=== PATIENT | female | born 1955 | race Caucasian/White ===

== ENCOUNTER 2019-05-14 09:40 | Emergency (ER) | payer BC ==
[2019-05-14 10:18] LABS: Absolute Lymphocytes (CBC) 1.9 K/uL (0.7-4.9); Basophils % 1.4 % (0-1.3); Hematocrit 39.8 % (36.0-45.0); Lymphocytes % 27.9 % (15.3-44.8); MPV 7.4 fL (7.6-11.3); RBC Red Blood Cell Count 4.79 M/uL (3.86-4.86)
[2019-05-14 10:42] LABS: Albumin 3.7 g/dL (3.4-5.0); Bilirubin Direct 0.2 mg/dL (0-0.2); Bilirubin Total 0.7 mg/dL (0.2-1.0); Potassium 3.9 mmol/L (3.5-5.1)
--- NOTE | 2019-05-14 11:25 | RAD REPORT ---
EXAM DESCRIPTION: CT - Abdomen Pelvis W Contrast - 05/14/2019 11:09 am CLINICAL HISTORY: Abdominal pain COMPARISON: none. TECHNIQUE: Computed axial tomography of the abdomen pelvis was obtained. 100 cc Isovue-300 was admin istered intravenously. Oral contrast was not requested which limits evaluation of bowel. All CT scans are performed using dose optimization technique as appropriate and may include automated exposure control or mA/KV adjustment according to patient size. FINDINGS: The liver, spleen, pancreas, adrenal and kidneys appear unremarkable. There is no evidence of diverticulitis. Normal appendix hysterectomy. Cholecystectomy Sclerosis involves the sacroiliac joints IMPRESSION: No acute abnormality is displayed.
[2019-05-14 11:48] LABS: Urine Blood NEGATIVE (NEG); Urine Glucose NEGATIVE (NEG); Urine Protein NEGATIVE (NEG); Urine pH 5.5 (5.0-7.0)
--- NOTE | 2019-05-14 11:52 | ER ---
Nurse's Notes [facility] Name: Erika De La Cruz Age: 63 yrs Sex: Female : 1955 Arrival Date: 05/14/2019 Time: 09:43 Bed 6 Private MD: Diagnosis: Unspecified abdominal pain Presentation: 05/14 09:50 Presenting complaint: Patient states: R sided abd pain described as dull, continuous ss and pinching that began 1.5 weeks ago. Patient reports she was told to come be evaluated for possible kidney stone. Patient was seen by PCP Thursday, and was told that her urine was negative for any signs of infection. Transition of care: patient was not received from another setting of care. Onset of symptoms was May 03, 2019. Risk Assessment: Do you want to hurt yourself or someone else? Patient reports no desire to harm self or others. Initial Sepsis Screen: Does the patient meet any 2 criteria? No. Patient's initial sepsis screen is negative. Does the patient have a suspected source of infection? No. Patient's initial sepsis screen is negative. Care prior to arrival: None. 09:50 Method Of Arrival: Ambulatory ss 09:50 Acuity: KYUNG 3 ss Triage Assessment: 10:50 General: Appears in no apparent distress. comfortable, Behavior is calm, cooperative, ch appropriate for age. 10:50 Pain: Complains of pain in abdomen Pain currently is 4 out of 10 on a pain scale. GI: ch Reports lower abdominal pain, upper abdominal pain, gaseousness. Historical: - Allergies: 10:44 Sulfa (Sulfonamide Antibiotics); jl7 - Home Meds: 10:44 pantoprazole 40 mg oral TbEC 1 tab once daily [Active]; lisinopril 20 mg Oral tab 1 tab jl7 once daily [Active]; levothyroxine 75 mcg tab 1 tab once daily [Active]; estradiol 0.5 mg Oral tab 1 tab once daily [Active]; - PMHx: 10:44 GERD; Hypertension; Hypothyroidism; jl7 - PSHx: 10:44 Hysterectomy; Cholecystectomy; right foot; left shoulder; neck \T\ back; jl7 - Immunization history:: Adult Immunizations up to date. - Social history:: Smoking status: Patient/guardian denies using tobacco. - Ebola Screening: : Patient denies exposure to infectious person Patient denies travel to an Ebola-affected area in the 21 days before illness onset. Screenin:03 Abuse screen: Denies threats or abuse. Denies injuries from another. Nutritional ch screening: No deficits noted. Tuberculosis screening: No symptoms or risk factors identified. Fall Risk None identified. Assessment: 12:03 Reassessment: Patient appears in no apparent distress at this time. Patient and/or ch family updated on plan of care and expected duration. Pain level reassessed. Patient is alert, oriented x 3, equal unlabored respirations, skin warm/dry/pink. Patient states feeling better. Patient states symptoms have improved. Vital Signs: 09:55 BP 147 / 91; Pulse 72; Resp 18 S; Pulse Ox 100% on R/A; jl7 10:34 BP 124 / 83; Pulse 63; Resp 16; Pulse Ox 100% on R/A; jl7 12:03 BP 110 / 67; Pulse 54; Resp 18; Temp 98.5; Pulse Ox 99% on R/A; Pain 0/10; ch ED Course: 09:43 Patient arrived in ED. mr 09:47 Per Mendes PA is PHCP. jr8 09:47 Duncan Brandon MD is Attending Physician. jr8 09:49 Crow Galvin RN is Primary Nurse. jl7 09:52 Triage completed. ss 10:12 Inserted saline lock: 20 gauge in right antecubital area, using aseptic technique. Blood collected. 10:34 Arm band placed on right wrist. jl7 10:40 Patient has correct armband on for positive identification. Bed in low position. Call light in reach. Side rails up X 1. Adult w/ patient. 10:40 Pulse ox on. NIBP on. 11:08 CT completed. Patient tolerated procedure well. Patient moved back from CT. mw3 11:11 CT Abd/Pelvis - IV Contrast Only In Process Unspecified. EDMS 12:04 No apparent distress. ch 12:04 No provider procedures requiring assistance completed. IV discontinued, intact, ch bleeding controlled, No redness/swelling at site. Pressure dressing applied. Administered Medications: No medications were administered Outcome: 11:51 Discharge ordered by . jr8 12:04 Discharged to home ambulatory, with family. ch 12:04 Condition: improved 12:04 Discharge instructions given to patient, family, Instructed on discharge instructions, follow up and referral plans. medication usage, Demonstrated understanding of instructions, follow-up care, medications. 12:05 Patient left the ED. Signatures: Dispatcher [employer] EDElizabeth Purdy, RN RN Jillian Yeh Shelby, RN RN Per Mendes PA PA jr8 Leal, Jahala, RN RN jl7 Ami Uribe mw3
--- NOTE | 2019-05-14 11:52 | EDPHYS ---
Physician Documentation [facility] Name: Erika De La Cruz Age: 63 yrs Sex: Female : 1955 Arrival Date: 05/14/2019 Time: 09:43 Bed 6 Private MD: DOMINICK Physician Duncan Brandon HPI: 05/14 11:52 This 63 yrs old Female presents to ER via Ambulatory with complaints of jr8 Abdominal Pain. 11:52 The patient presents with abdominal pain in the right upper quadrant, right lower jr8 quadrant. Onset: The symptoms/episode began/occurred 1 week(s) ago. The patient has not experienced similar symptoms in the past. Pt reports right sided abd pain for one week, seen by PCP, urine was negative for blood or infection but pain is worse today.. Historical: - Allergies: 10:44 Sulfa (Sulfonamide Antibiotics); jl7 - Home Meds: 10:44 pantoprazole 40 mg oral TbEC 1 tab once daily [Active]; lisinopril 20 mg Oral tab 1 tab jl7 once daily [Active]; levothyroxine 75 mcg tab 1 tab once daily [Active]; estradiol 0.5 mg Oral tab 1 tab once daily [Active]; - PMHx: 10:44 GERD; Hypertension; Hypothyroidism; jl7 - PSHx: 10:44 Hysterectomy; Cholecystectomy; right foot; left shoulder; neck \T\ back; jl7 - Immunization history:: Adult Immunizations up to date. - Social history:: Smoking status: Patient/guardian denies using tobacco. - Ebola Screening: : Patient denies exposure to infectious person Patient denies travel to an Ebola-affected area in the 21 days before illness onset. ROS: 11:52 Constitutional: Negative for fever, chills, and weight loss, Eyes: Negative for injury, jr8 pain, redness, and discharge, ENT: Negative for injury, pain, and discharge, Neck: Negative for injury, pain, and swelling, Cardiovascular: Negative for chest pain, palpitations, and edema, Respiratory: Negative for shortness of breath, cough, wheezing, and pleuritic chest pain, Abdomen/GI: Negative for abdominal pain, nausea, vomiting, diarrhea, and constipation, Back: Negative for injury and pain, MS/Extremity: Negative for injury and deformity, Neuro: Negative for headache, weakness, numbness, tingling, and seizure. Exam: 11:52 Constitutional: This is a well developed, well nourished patient who is awake, alert, jr8 and in no acute distress. Head/Face: Normocephalic, atraumatic. Eyes: Pupils equal round and reactive to light, extra-ocular motions intact. Lids and lashes normal. Conjunctiva and sclera are non-icteric and not injected. Cornea within normal limits. Periorbital areas with no swelling, redness, or edema. ENT: Nares patent. No nasal discharge, no septal abnormalities noted. Tympanic membranes are normal and external auditory canals are clear. Oropharynx with no redness, swelling, or masses, exudates, or evidence of obstruction, uvula midline. Mucous membranes moist. Neck: Trachea midline, no thyromegaly or masses palpated, and no cervical lymphadenopathy. Supple, full range of motion without nuchal rigidity, or vertebral point tenderness. No Meningismus. Chest/axilla: Normal chest wall appearance and motion. Nontender with no deformity. No lesions are appreciated. Cardiovascular: Regular rate and rhythm with a normal S1 and S2. No gallops, murmurs, or rubs. Normal PMI, no JVD. No pulse deficits. Respiratory: Lungs have equal breath sounds bilaterally, clear to auscultation and percussion. No rales, rhonchi or wheezes noted. No increased work of breathing, no retractions or nasal flaring. Back: No spinal tenderness. No costovertebral tenderness. Full range of motion. Skin: Warm, dry with normal turgor. Normal color with no rashes, no lesions, and no evidence of cellulitis. 11:52 Abdomen/GI: Inspection: abdomen appears normal, Bowel sounds: normal, in all quadrants, Palpation: soft, in all quadrants, mild abdominal tenderness, in the right upper quadrant and right lower quadrant. Vital Signs: 09:55 BP 147 / 91; Pulse 72; Resp 18 S; Pulse Ox 100% on R/A; jl7 10:34 BP 124 / 83; Pulse 63; Resp 16; Pulse Ox 100% on R/A; jl7 12:03 BP 110 / 67; Pulse 54; Resp 18; Temp 98.5; Pulse Ox 99% on R/A; Pain 0/10; ch MDM: 09:47 Patient medically screened. jr8 11:49 Data reviewed: vital signs, nurses notes, lab test result(s), radiologic studies, and jr8 as a result, I will discharge patient. Data interpreted: Pulse oximetry: on room air is 100 %. Interpretation: normal. Counseling: I had a detailed discussion with the patient and/or guardian regarding: the historical points, exam findings, and any diagnostic results supporting the discharge/admit diagnosis, the presence of at least one elevated blood pressure reading (>120/80) during this emergency department visit, lab results. Response to treatment: the patient's symptoms have mildly improved after treatment. ED course: Pt resting in stretcher comfortably, discussed results from CT, labs. . 05/14 09:52 Order name: Basic Metabolic Panel; Complete Time: 10:51 05/14 09:52 Order name: CBC with Diff; Complete Time: 10:51 05/14 09:52 Order name: Creatinine for Radiology; Complete Time: 10:05/14 09:52 Order name: Hepatic Function; Complete Time: 10:05/14 09:52 Order name: Lipase; Complete Time: 10:05/14 10:50 Order name: Urine Dipstick--Ancillary (enter results); Complete Time: 11:49 05/14 09:52 Order name: IV Saline Lock; Complete Time: 10:30 05/14 09:52 Order name: Labs collected and sent; Complete Time: 10:05/14 10:45 Order name: CT Abd/Pelvis - IV Contrast Only; Complete Time: 11:49 ss Administered Medications: No medications were administered Disposition: 05/14/19 11:51 Discharged to Home. Impression: Unspecified abdominal pain. - Condition is Stable. - Discharge Instructions: Abdominal Pain, Adult. - Medication Reconciliation Form, Thank You Letter form. - Follow up: Private Physician; When: 2 - 3 days; Reason: Recheck today's complaints, Re-evaluation by your physician. - Problem is new. - Symptoms have improved. Addendum: 05/16/2019 07:57 Co-signature as Attending Physician, Duncan Brandon MD I agree with the assessment and c palma plan of care. Signatures: Dispatcher [facility] Elizabeth Farias RN RN ch Anderson, Corey, MD MD [facility] Yamilet, RN RN Per Washington PA PA jr8 Crow Galvin RN RN jl7 Corrections: (The following items were deleted from the chart) 05/14 12:05 11:51 05/14/2019 11:51 Discharged to Home. Impression: Unspecified abdominal pain. ch Condition is Stable. Forms are Medication Reconciliation Form, Thank You Letter, Antibiotic Education, Prescription Opioid Use. Follow up: Private Physician; When: 2 - 3 days; Reason: Recheck today's complaints, Re-evaluation by your physician. Problem is new. Symptoms have improved. jr8
[2019-05-14 12:15] VITALS: BP 110/67; TEMP 98.5; O2SAT 99
== END 2019-05-14 12:05 | disposition home or self-care (01) ==
LOC: ER 09:40
DX: R10.9 Unspecified abdominal pain (principal); I10 Essential (primary) hypertension; E03.9 Hypothyroidism, unspecified; Z88.2 Allergy status to sulfonamides
CPT/HCPCS: 85025; 80048; 36415; 80076; 81003; 83690; 74177; 99284; Q9967

== ENCOUNTER 2020-10-04 15:15 | Emergency (ER) | payer OTHER ==
[2020-10-04 18:26] LABS: Absolute Lymphocytes (CBC) 1.5 K/uL (0.7-4.9); Hematocrit 35.7 % (36.0-45.0); Lymphocytes % 13.5 % (15.3-44.8); MPV 7.8 fL (7.6-11.3)
[2020-10-04 18:48] LABS: Albumin 3.4 g/dL (3.4-5.0); Bilirubin Direct 0.3 mg/dL (0-0.2); Bilirubin Total 1.3 mg/dL (0.2-1.0); Potassium 3.1 mmol/L (3.5-5.1); Protein, Total 7.1 g/dL (6.4-8.2)
--- NOTE | 2020-10-04 19:46 | RAD REPORT ---
EXAM DESCRIPTION: CTAbdomen Pelvis W Contrast - 10/04/2020 7:32 pm CLINICAL HISTORY: Abdominal pain. ABD PAIN COMPARISON: Abdomen Pelvis W Contrast dated 05/14/2019 TECHNIQUE: Biphasic CT imaging of the abdomen and pelvis was performed with 100 ml non-ionic IV cont rast. All CT scans are performed using dose optimization technique as appropriate and may include automated exposure control or mA/KV adjustment according to patient size. FINDINGS: The lung bases are clear.Cholecystectomy. The liver, spleen, pancreas, adrenal glands and kidneys are within normal limits. No bowel obstruction, free air, free fluid or abscess. Moderate inflammation is seen surrounding the sigmoid colon suggesting diverticulitis. The appendix is normal. No evidence of significant lymphade nopathy. Moderate lumbar degenerative changes. IMPRESSION: Mild to moderate acute diverticulitis suspected involving the sigmoid colon. No abscess is evident.
[2020-10-04] MEDS ORDERED: METRONIDAZOLE 500mg IVPB 500 MG/100 ML BAG IV ONE (20:12)
[2020-10-04] MEDS ORDERED: CIPROFLOXACIN 400mg IV 400 MG/200 ML BAG IV ONE (20:12)
--- NOTE | 2020-10-04 20:24 | EDPHYS ---
Physician Documentation [facility] Name: Erika De La Cruz Age: 65 yrs Sex: Female : 1955 Arrival Date: 10/04/2020 Time: 15:17 Bed 17 Private MD: ED Physician Duncan Brandon HPI: 10/04 18:41 This 65 yrs old Female presents to ER via Ambulatory with complaints of jr8 Abdominal Pain. 18:41 The patient presents with abdominal pain in the lower abdomen. Onset: The jr8 symptoms/episode began/occurred acutely, yesterday. The symptoms do not radiate. Associated signs and symptoms: none. The symptoms are described as crampy. Modifying factors: The symptoms are alleviated by nothing, the symptoms are aggravated by movement. Severity of pain: At its worst the pain was moderate in the emergency department the pain is unchanged. The patient has not experienced similar symptoms in the past. The patient has not recently seen a physician. Historical: - Allergies: 15:31 Sulfa (Sulfonamide Antibiotics); ll1 - PMHx: 15:31 GERD; Hypertension; Hypothyroidism; Asthma; ll1 - PSHx: 15:31 Hysterectomy; Cholecystectomy; right foot; left shoulder; neck \T\ back; knee sx; ll1 - Immunization history:: Flu vaccine is up to date. - Social history:: Smoking status: Patient denies any tobacco usage or history of. ROS: 18:41 Eyes: Negative for injury, pain, redness, and discharge, ENT: Negative for injury, jr8 pain, and discharge, Neck: Negative for injury, pain, and swelling, Cardiovascular: Negative for chest pain, palpitations, and edema, Respiratory: Negative for shortness of breath, cough, wheezing, and pleuritic chest pain, Back: Negative for injury and pain, MS/Extremity: Negative for injury and deformity, Skin: Negative for injury, rash, and discoloration, Neuro: Negative for headache, weakness, numbness, tingling, and seizure. 18:41 Abdomen/GI: Positive for abdominal pain, abdominal cramps, Negative for nausea, vomiting, and diarrhea, abdominal distension, hematemesis, black/tarry stool, rectal bleeding, bowel incontinence, flatulence. Exam: 18:41 Eyes: Pupils equal round and reactive to light, extra-ocular motions intact. Lids and jr8 lashes normal. Conjunctiva and sclera are non-icteric and not injected. Cornea within normal limits. Periorbital areas with no swelling, redness, or edema. ENT: Nares patent. No nasal discharge, no septal abnormalities noted. Tympanic membranes are normal and external auditory canals are clear. Oropharynx with no redness, swelling, or masses, exudates, or evidence of obstruction, uvula midline. Mucous membranes moist. Neck: Trachea midline, no thyromegaly or masses palpated, and no cervical lymphadenopathy. Supple, full range of motion without nuchal rigidity, or vertebral point tenderness. No Meningismus. Cardiovascular: Regular rate and rhythm with a normal S1 and S2. No gallops, murmurs, or rubs. Normal PMI, no JVD. No pulse deficits. Respiratory: Lungs have equal breath sounds bilaterally, clear to auscultation and percussion. No rales, rhonchi or wheezes noted. No increased work of breathing, no retractions or nasal flaring. Back: No spinal tenderness. No costovertebral tenderness. Full range of motion. Skin: Warm, dry with normal turgor. Normal color with no rashes, no lesions, and no evidence of cellulitis. MS/ Extremity: Pulses equal, no cyanosis. Neurovascular intact. Full, normal range of motion. Neuro: Awake and alert, GCS 15, oriented to person, place, time, and situation. Cranial nerves II-XII grossly intact. Motor strength 5/5 in all extremities. Sensory grossly intact. Cerebellar exam normal. Normal gait. 18:41 Abdomen/GI: Inspection: abdomen appears normal, Bowel sounds: active, all quadrants, Palpation: soft, in all quadrants, moderate abdominal tenderness, in the right lower quadrant, mass, is not appreciated, rebound tenderness, is not appreciated, voluntary guarding, is not appreciated, involuntary guarding, is not appreciated, no appreciated organomegaly, Indicators: McBurney's point is not tender, Fitzpatrick's sign is negative, Rovsing's sign is negative, Liver: tenderness, is not appreciated. Vital Signs: 15:28 BP 136 / 73; Pulse 105; Resp 16; Temp 97.2; Pulse Ox 97% on R/A; Weight 90.72 kg; ll1 Height 5 ft. 6 in. (167.64 cm); Pain 1/10; 18:40 BP 119 / 67; Pulse 74; Resp 16; Pulse Ox 97% on R/A; iw 19:00 BP 109 / 45; Pulse 72; Resp 16; Pulse Ox 98% ; sf 19:37 BP 128 / 60; sf 20:00 BP 138 / 75; Pulse 70; Resp 16; Pulse Ox 98% ; sf 21:00 BP 121 / 61; Pulse 73; Resp 16; Pulse Ox 97% ; sf 21:30 BP 123 / 67; Pulse 71; Resp 16; Pulse Ox 97% ; sf 15:28 Body Mass Index 32.28 (90.72 kg, 167.64 cm) ll1 MDM: 17:34 Patient medically screened. jr8 20:20 Data reviewed: vital signs, nurses notes, lab test result(s), radiologic studies, CT jr8 scan. Data interpreted: Pulse oximetry: on room air is 97 %. Interpretation: normal. Counseling: I had a detailed discussion with the patient and/or guardian regarding: the historical points, exam findings, and any diagnostic results supporting the discharge/admit diagnosis, lab results, radiology results, the need for outpatient follow up, a family practitioner, a child care education coordinator, to return to the emergency department if symptoms worsen or persist or if there are any questions or concerns that arise at home. ED course: Patient without pain currently. No leukocytosis. CT without perforation or complication. Hemodynamically stable. Will d/c patient home on Abx and close return precautions. S/S given to patient to watch for that would indicate need for reevaluation and admission. Patient good with this plan . 10/04 17:34 Order name: Basic Metabolic Panel; Complete Time: 18:51 jr8 10/04 17:34 Order name: CBC with Diff; Complete Time: 18:34 jr8 10/04 17:34 Order name: Hepatic Function; Complete Time: 18:51 jr8 10/04 17:34 Order name: Lipase; Complete Time: 18:51 jr8 10/04 17:48 Order name: CT Abd/Pelvis - IV Contrast Only; Complete Time: 19:47 jr8 10/04 17:34 Order name: IV Saline Lock; Complete Time: 18:06 8 10/04 17:34 Order name: Labs collected and sent; Complete Time: 18:06 jr8 Administered Medications: 20:00 Drug: Flagyl 500 mg Volume: 100 ml; Route: IVPB; Rate: 200 ml/hr; Infused Over: 30 sf mins; Site: left antecubital; 20:30 Follow up: IV Status: Completed infusion sf 21:55 Follow up: Response: No adverse reaction sf 20:40 Drug: Ciprofloxacin 400 mg Volume: 200 ml; Route: IVPB; Infused Over: 60 mins; Site: sf left antecubital; 21:40 Follow up: IV Status: Completed infusion sf 21:55 Follow up: Response: Medication administered at discharge. sf Disposition: 10/05 05:39 Co-signature as Attending Physician, Duncan Brandon MD I agree with the assessment and [facility] plan of care. Disposition: 10/04/20 20:23 Discharged to Home. Impression: Diverticulitis of large intestine without perforation or abscess without bleeding. - Condition is Stable. - Discharge Instructions: Diverticulitis. - Prescriptions for Bentyl 20 mg Oral Tablet - take 1 tablet by ORAL route every 6 hours As needed; 20 tablet. Cipro 500 mg Oral Tablet - take 1 tablet by ORAL route every 12 hours for 10 days; 20 tablet. Flagyl 500 mg Oral Tablet - take 1 tablet by ORAL route every 6 hours for 10 days; 40 tablet. Tylenol- Codeine #3 300-30 mg Oral Tablet - take 2 tablets by ORAL route every 6 hours As needed; 20 tablet. - Medication Reconciliation Form, Thank You Letter, Antibiotic Education, Prescription Opioid Use form. - Follow up: Private Physician; When: 5 - 6 days; Reason: Recheck today's complaints, Continuance of care, Re-evaluation by your physician. - Problem is new. - Symptoms have improved. Signatures: Dispatcher [employer] [facility] Duncan Brandon MD MD cha Roszak, Josh, PA PA jr8 Albina Castorena RN RN ll1 Linus Lundberg RN RN sf Corrections: (The following items were deleted from the chart) 10/04 22:01 20:23 10/04/2020 20:23 Discharged to Home. Impression: Diverticulitis of large sf intestine without perforation or abscess without bleeding. Condition is Stable. Forms are Medication Reconciliation Form, Thank You Letter, Antibiotic Education, Prescription Opioid Use. Follow up: Private Physician; When: 5 - 6 days; Reason: Recheck today's complaints, Continuance of care, Re-evaluation by your physician. Problem is new. Symptoms have improved. jr8
--- NOTE | 2020-10-04 20:24 | ER ---
Nurse's Notes [facility] Name: Erika De La Cruz Age: 65 yrs Sex: Female : 1955 Arrival Date: 10/04/2020 Time: 15:17 Bed 17 Private MD: Diagnosis: Diverticulitis of large intestine without perforation or abscess without bleeding Presentation: 10/04 15:28 Chief complaint: Patient states: Lower abd pain/cramping for 2 days intermittently. Had ll1 large BM yesterday, but her stomach still is crampy. No fever. Coronavirus screen: Client denies travel out of the [place] in the last 14 days. At this time, the client does not indicate any symptoms associated with coronavirus-19. Ebola Screen: Patient denies travel to an Ebola-affected area in the 21 days before illness onset. Initial Sepsis Screen: Does the patient meet any 2 criteria? HR > 90 bpm. No. Patient's initial sepsis screen is negative. Does the patient have a suspected source of infection? Yes: Acute abdominal pain. Risk Assessment: Do you want to hurt yourself or someone else? Patient reports no desire to harm self or others. Onset of symptoms was October 03, 2020. 15:28 Method Of Arrival: Ambulatory ll1 15:28 Acuity: KYUNG 3 ll1 Historical: - Allergies: 15:31 Sulfa (Sulfonamide Antibiotics); ll1 - PMHx: 15:31 GERD; Hypertension; Hypothyroidism; Asthma; ll1 - PSHx: 15:31 Hysterectomy; Cholecystectomy; right foot; left shoulder; neck \T\ back; knee sx; ll1 - Immunization history:: Flu vaccine is up to date. - Social history:: Smoking status: Patient denies any tobacco usage or history of. Screenin:23 Abuse screen: Denies threats or abuse. Denies injuries from another. Nutritional iw screening: No deficits noted. Tuberculosis screening: No symptoms or risk factors identified. Fall Risk None identified. Assessment: 18:22 General: Appears in no apparent distress. Behavior is calm, cooperative. Pain: iw Complains of pain in right lower quadrant and left lower quadrant Pain currently is 0 out of 10 on a pain scale. at worst was 10 out of 10 on a pain scale. Is intermittent. Neuro: Level of Consciousness is awake, alert, obeys commands, Oriented to person, place, time, situation, Moves all extremities. Full function. Cardiovascular: Patient's skin is warm and dry. Respiratory: Respiratory effort is even, unlabored, Respiratory pattern is regular. GI: Bowel sounds present X 4 quads. Abd is soft X 4 quads Reports lower abdominal pain. Derm: Skin is intact, is healthy with good turgor. Musculoskeletal: Range of motion: intact in all extremities. 18:40 Reassessment: Patient appears in no apparent distress at this time. Patient and/or iw family updated on plan of care and expected duration. Pain level reassessed. Patient is alert, oriented x 3, equal unlabored respirations, skin warm/dry/pink. Vital Signs: 15:28 BP 136 / 73; Pulse 105; Resp 16; Temp 97.2; Pulse Ox 97% on R/A; Weight 90.72 kg; ll1 Height 5 ft. 6 in. (167.64 cm); Pain 1/10; 18:40 BP 119 / 67; Pulse 74; Resp 16; Pulse Ox 97% on R/A; iw 19:00 BP 109 / 45; Pulse 72; Resp 16; Pulse Ox 98% ; sf 19:37 BP 128 / 60; sf 20:00 BP 138 / 75; Pulse 70; Resp 16; Pulse Ox 98% ; sf 21:00 BP 121 / 61; Pulse 73; Resp 16; Pulse Ox 97% ; sf 21:30 BP 123 / 67; Pulse 71; Resp 16; Pulse Ox 97% ; sf 15:28 Body Mass Index 32.28 (90.72 kg, 167.64 cm) ll1 ED Course: 15:17 Patient arrived in ED. as 15:30 Triage completed. ll1 15:31 Arm band placed on. ll1 17:33 Per Mendes PA is PHCP. jr8 17:33 Duncan Brandon MD is Attending Physician. jr8 17:51 Gilda Griffiths, RN is Primary Nurse. iw 18:06 Initial lab(s) drawn, by hi, sent to lab. Inserted saline lock: 20 gauge in left iw antecubital area, using aseptic technique. Blood collected. 18:22 Patient has correct armband on for positive identification. iw 19:09 Primary Nurse role handed off by Gilda Griffiths, RN 19:09 Linus Lundberg, RN is Primary Nurse. sf 19:32 CT Abd/Pelvis - IV Contrast Only In Process Unspecified. EDMS 21:59 IV discontinued, intact, bleeding controlled, No redness/swelling at site. Pressure sf dressing applied. 22:00 No provider procedures requiring assistance completed. sf Administered Medications: 20:00 Drug: Flagyl 500 mg Volume: 100 ml; Route: IVPB; Rate: 200 ml/hr; Infused Over: 30 sf mins; Site: left antecubital; 20:30 Follow up: IV Status: Completed infusion sf 21:55 Follow up: Response: No adverse reaction sf 20:40 Drug: Ciprofloxacin 400 mg Volume: 200 ml; Route: IVPB; Infused Over: 60 mins; Site: sf left antecubital; 21:40 Follow up: IV Status: Completed infusion sf 21:55 Follow up: Response: Medication administered at discharge. sf Outcome: 20:23 Discharge ordered by MD. lizarraga 22:00 Discharged to home ambulatory. sf 22:00 Condition: stable 22:00 Discharge instructions given to patient, Instructed on discharge instructions, follow up and referral plans. medication usage, Demonstrated understanding of instructions, follow-up care, medications, Prescriptions given X 4. 22:01 Patient left the ED. sf Signatures: Dispatcher [employer] EDMS Era Santillan Irene, RN Per Amaya PA PA jr8 Lewis, Lynsay, RN RN ll1 Linus Lundberg RN RN
[2020-10-04 22:58] VITALS: TEMP 97.2
[2020-10-04 23:04] VITALS: O2SAT 97
[2020-10-04 23:05] VITALS: BP 123/67
== END 2020-10-04 22:01 | disposition home or self-care (01) ==
LOC: ER 15:15
DX: K57.32 Diverticulitis of large intestine without perforation or abscess without bleeding (principal); I10 Essential (primary) hypertension; Z88.2 Allergy status to sulfonamides
CPT/HCPCS: 96365; 96367; 85025; 80048; 36415; 80076; 83690; 74177; 99284; Q9967; J0744